=== PATIENT | female | born 1980 ===

== ENCOUNTER 2019-03-31 14:16 | Inpatient (IN) | payer OTHER ==
[~2019-03-31] VITALS: Ht 165.1 cm; Wt 95.3 kg
[2019-03-31 15:20] LABS: BASOPHILS ABSOLUTE AUTO 0.05 K/mm3 (0.00-0.23); BASOPHILS PERCENT AUTO 0 % (0-2); EOSINOPHILS PERCENT AUTO 0 % (0-6); Hematocrit 39.4 % (33.0-51.0); Hemoglobin 12.8 g/dL (11.5-16.0); IMMATURE GRAN ABSOLUTE AUTO 0.06 K/mm3 (0.00-0.10); IMMATURE GRAN PERCENT AUTO 0 % (0-1); LYMPHOCYTES ABSOLUTE AUTO 1.08 K/mm3 (0.84-5.20); LYMPHOCYTES PERCENT AUTO 7 % (21-46); MONOCYTES ABSOLUTE AUTO 1.29 K/mm3 (0.16-1.47); MONOCYTES PERCENT AUTO 8 % (4-13); Mean Corpuscular HGB 29.3 pg (26.0-34.0); Mean Corpuscular HGB Conc 32.5 g/dL (31.5-36.5); Mean Corpuscular Volume 90 fL (80-100); NEUTROPHILS ABSOLUTE AUTO 12.82 K/mm3 (1.96-9.15); NEUTROPHILS PERCENT AUTO 84 % (41-73); Platelet Count 161 K/mm3 (150-400); RDW Coefficient Variation 12.2 % (11.7-14.2); RDW Standard Deviation 40.2 fL (35.1-46.3); Red Blood Cell Count 4.37 M/mm3 (3.80-5.20)
[2019-03-31 15:41] LABS: Alanine Aminotransfer (ALT/SGP 22 U/L (12-78); Albumin/Globulin Ratio 0.6 (0.8-1.8); Alk Phos 64 U/L (50-136); Anion Gap 8 mmol/L (6-16); Aspartate Aminotrans (AST/SGOT 16 U/L (12-37); Bilirubin, Total 1.4 mg/dL (0.1-1.0); Blood Urea Nitrogen 9 mg/dL (8-24); Bun/Creatinine Ratio 9.8 (12.0-20.0); CO2, Blood 26 mmol/L (21-32); Calcium, Blood 8.5 mg/dL (8.5-10.1); Chloride, Blood 99 mmol/L (98-108); Creatinine, Blood 0.91 mg/dL (0.40-1.00); Globulin, Blood 4.7 g/dL (2.2-4.0); Glomerular Filtration Rate >60 (60-); Glucose, Blood 119 mg/dL (70-99); Potassium, Blood 3.4 mmol/L (3.5-5.5); Sodium, Blood 133 mmol/L (136-145); Total Protein, Blood 7.7 g/dL (6.4-8.2)
[2019-03-31 16:49] LABS: Source, Urine Clean Catch
[2019-03-31 16:53] LABS: Bilirubin, Urine Neg (Neg); Blood, Urine 4+ (Neg); Glucose Qualitative, Urine Neg (Neg); Ketones, Urine Neg (Neg); Leukocyte Esterase, Urine 3+ (Neg); Nitrite, Urine Neg (Neg); Protein, Urine 3+ (Neg); Urobilinogen, Urine 1+ (Normal); pH, Urine 6.5 (5.0-8.0)
[2019-03-31 17:19] LABS: Appearance, Urine Cloudy (Clear); Color, Urine Yellow (P-Yellow)
[2019-03-31 17:28] LABS: White Blood Cells, Urine TNTC /hpf (0-5)
[2019-03-31 17:29] LABS: Bacteria Many /hpf; Squamous Epithelial Cells Few /hpf (Few)
--- NOTE | 2019-03-31 19:32 | NUR ---
ADMIT NOTE- PT ARRIVED AT CHANGE OF SHIFT. PT ADMIT COMPLETED PT HAS NO S&S OF DISTRESS NOTED AT THIS TIME REQUESTED A SHOWER ON ARRIVAL. LR CAME UP FROM THE ED WITH THE PT NOT CURRENTLY RUNNING, DID NOT START NIGHT RN AWARE, PT GETTING INTO THE SHOWER AT THIS TIME. NO ACTIVE DIET ORDER.
--- NOTE | 2019-04-01 02:06 | NUR ---
0145 PT RANG THAT IV PUMP WAS ALARMING. IV PUMP WAS SILENCED. INFORMED PT NOT TO SHUT OFF ALARM IT MAY DELAY CORRECTION OF PROBLEM. PT DENIED TURNING IT OFF.
--- NOTE | 2019-04-01 03:51 | NUR ---
03/31/19 0342 VITALS TAKEN AND HEART RATE AT 102. SLIGHT FEVER AT 99.4. PAGED FRONT WINDOW [employer] HOSPITALIST, DR GLASER, AND INFORMED. IV FLUIDS RUNNING AT 125ML/HOUR AND INFORMED MD WELL. "JUST WATCH HER FOR NOW."
--- NOTE | 2019-04-01 04:26 | NUR ---
0420 AWAKENED FOR AM LABS. C/O CHILLS. ORAL TEMP = 98.9 DEGREES F. WARM BLANKETS GIVEN.
[2019-04-01 04:46] LABS: Hematocrit 37.5 % (33.0-51.0); Hemoglobin 12.3 g/dL (11.5-16.0); Mean Corpuscular HGB 30.1 pg (26.0-34.0); Mean Corpuscular HGB Conc 32.8 g/dL (31.5-36.5); Mean Corpuscular Volume 92 fL (80-100); Mean Platelet Volume 10.5 fL (9.1-12.4); Platelet Count 140 K/mm3 (150-400); RDW Coefficient Variation 12.3 % (11.7-14.2); RDW Standard Deviation 41.5 fL (35.1-46.3); Red Blood Cell Count 4.08 M/mm3 (3.80-5.20); White Blood Cell Count 15.28 K/mm3 (4.00-11.30)
[2019-04-01 05:08] LABS: Anion Gap 7 mmol/L (6-16); Blood Urea Nitrogen 7 mg/dL (8-24); Bun/Creatinine Ratio 8.4 (12.0-20.0); CO2, Blood 24 mmol/L (21-32); Calcium, Blood 8.2 mg/dL (8.5-10.1); Chloride, Blood 103 mmol/L (98-108); Creatinine, Blood 0.83 mg/dL (0.40-1.00); Glomerular Filtration Rate >60 (60-); Glucose, Blood 103 mg/dL (70-99); Potassium, Blood 3.9 mmol/L (3.5-5.5); Sodium, Blood 134 mmol/L (136-145)
--- NOTE | 2019-04-01 05:51 | NUR ---
04/01/19 0545 SLEEPING WELL. IV FLUIDS AT 125 ML/HOUR. REFER TO PREVIOUS NOTES.
--- NOTE | 2019-04-01 07:15 | NUR ---
gram negative rods NOTED ON BLOOD CULTURES PER ALIESE IN MICROBIOLOGY.
--- NOTE | 2019-04-01 07:20 | NUR ---
CALLED DR BILLS HE IS AWARE OF THE PT POSSITIVE BLOOD CULTURE.
--- NOTE | 2019-04-01 07:25 | NUR ---
ASSUMED CARE OF PT- REPORT RECIEVED FROM NIGHT RN [place]. PER REPORT PT HAS REQUESTED TORADOL FOR PAIN, STATING SHE HAS HAD IT EFORE AND IT WORKED WELL. WILL TALK TO DR BILLS ON MORNING ROUNDS.
[2019-04-01 08:57] LABS: Vancomycin, Trough 11.2 ug/mL (5.0-10.0)
--- NOTE | 2019-04-01 19:23 | NUR ---
SHIFT SUMARY- PT ALERT AND ORIENTED, INDEPENDENT IN THE ROOM. PT HAS TORADOL ADDED TO HER EMAR FOR PAIN MANAGEMENT IV. BOTH OF PT IV'S INFILTRATED AT THE SAME TIME AROUND 1845. NIGHT RN AWARE, IV ABX WERE RUNNING AT THAT TIME. NEW IV ACCESS NEEDED.
--- NOTE | 2019-04-02 02:05 | NUR ---
04/02/19 0125 PT VERY IRRITABLE AND WANTING IV DISCONNECTED TO "GO SMOKE". C/O NOT GETTING FRESH WATER "FOR 4 HOURS". RN DISCONNECTED HER IV SO SHE COULD GO SMOKE AND THEN RECONNECTED AGAIN.
--- NOTE | 2019-04-02 04:20 | NUR ---
04/02/19 0420 AWAKENED FOR AM VITALS. VITALS STABLE. FRESH WATER GIVEN THROUGHTOUT NIGHT. MORE PLEASANT AT THIS TIME. VOIDING LARGE AMOUNTS AND TAKING ORAL INTAKE WELL. MEDICATED FOR ABDOMINAL/HEAD PAIN PRN. SIGNIFICANT OTHER AT BEDSIDE MOST OF SHIFT. WENT OUTSIDE TO SMOKE ONCE SO FAR THIS SHIFT.
[2019-04-02] MEDS ORDERED: Arthritis Pain650 M1 PO (10:37)
[2019-04-02] MEDS ORDERED: HIGH POTENCY P1 EACH PO (10:39)
[2019-04-02] MEDS ORDERED: Ultram50 MG PO (10:41)
[2019-04-02] MEDS ORDERED: LEVFLO500 PO (10:41)
--- NOTE | 2019-04-02 14:07 | NUR ---
PT DCD HOME. ORDERS FAXED IN TO PHARMACY OF CHOICE. ALL ORDERS AND INSTRUCTIONS REVIEWED WITH PT WHO VERBALIZED AN UNDERSTANDING AND AGREED TO COMPLETE NEW PATIENT PACKET FOR [facility] PROVIDER AND SCHEDULE F/U APPT. IV REMOVED WITH NO ISSUE. ALL PERSONAL BELONGINGS SENT WITH PT. PT STABLE UPON DC.
[2019-04-02 22:06] LABS: CHLAMYDIA TRACHOMATIS, NAA Negative (Negative); NEISSERIA GONORRHOEAE, NAA Negative (Negative)
== END 2019-04-02 14:05 | disposition home or self-care (01) | DRG 872 ==
LOC: ER 14:16 → MEDS 14:17 → ENPENDDIS 04-02 10:36 → MEDS 04-02 14:05
PROVIDERS: Physician Assistant; ADMIT Internal Medicine
DX: A41.51 Sepsis due to Escherichia coli [E. coli] (principal); N10 Acute pyelonephritis; E87.1 Hypo-osmolality and hyponatremia; R65.20 Severe sepsis without septic shock; E87.6 Hypokalemia; E86.0 Dehydration; F17.200 Nicotine dependence, unspecified, uncomplicated
CPT/HCPCS: 36415; 74177; 76830; 76856; 80048; 80053; 80202; 81001; 81025; 83605; 83690; 84702; 85025; 85027; 87040; 87070; 87077; 87086; 87186; 87205; 87491; 87591; 96361; 96365; 96366; 96367; 96375; 99285-25; A9270; G0378; J0696; J1885; J3010; J3370; J7030; J7050; J7120; Q9967